=== PATIENT | female | born 1970 | race Caucasian/White ===

== ENCOUNTER 2018-02-11 17:56 | Emergency (ER) | payer OTHER ==
[2018-02-11 18:04] VITALS: BP 158/95; PULSE 63; TEMP 98.3; BMI 20.9
[2018-02-11 18:26] LABS: HCG,QUALITATIVE URINE Negative
[2018-02-11 18:30] LABS: PH,URINE 7.5 (4.5-8); URINE APPEARANCE Clear; URINE BILIRUBIN Negative (NEGATIVE); URINE COLOR Yellow; URINE GLUCOSE (UA) Negative (NEGATIVE); URINE KETONE Negative (NEGATIVE); URINE LEUK ESTERASE 2+ (NEGATIVE); URINE NITRITE Positive (NEGATIVE); URINE PROTEIN 2+ (NEGATIVE); URINE UROBILINOGEN 0.2 (0.2-1.0)
[2018-02-11] MEDS ORDERED: SODIUM CHLORIDE 1,000 ML IV STA (18:58)
[2018-02-11] MEDS ORDERED: ACETAMINOPHEN 1000 MG/100 ML VIAL (NON FORMULARY) IVPB ONE (18:58)
--- NOTE | 2018-02-11 19:24 | PDOC ---
History of Present Illness - General Chief Complaint: Pain, Acute Stated Complaint: RIGHT FLANK PAIN Time Seen by Provider: 02/11/18 18:00 - History of Present Illness Initial Comments: 02/11/18 19:34 The patient is a 47 year old female, with a past medical history of interstitial cystitis, who presents to the emergency department with sudden onset right flank pain that started today. She describes this pain as a sharp pain ranging between 7-10/10. She took 400mg of Advil, without relief. Patient endorses 2 months of UTI symptoms for which she has been treated 4 times using various antibiotics. She endorses suprapubic pain and burning with urination. She states that her symptoms never completely cleared up even on the abx. Pt is followed by Dr. Gaston and is scheduled for a cystoscopy tomorrow. Pt has never had pain like this before. Never been diagnosed with kidney stone. She denies recent fevers, chills, headache or dizziness. She denies recent nausea, vomit, diarrhea or constipation. She denies recent chest pain or shortness of breath. Allergies: Nitrofurantoin. Past surgical history: None reported. Primary Care Physician: Dr. Ramírez Past History - Past Medical History Allergies/Adverse Reactions: Allergies Allergy/AdvReac Type Severity Reaction Status Date / Time nitrofurantoin Allergy Verified 02/11/18 17:57 [From Macrodantin] Home Medications: Ambulatory Orders Aripiprazole [Abilify] 5 mg PO DAILY 02/11/18 Escitalopram Oxalate [Lexapro -] 10 mg PO DAILY 02/11/18 Lamotrigine [Lamictal] 200 mg PO DAILY 02/11/18 Meth/Meblue/Sod Phos/Psal/Hyos [Uro-Mp Capsule] 1 each PO DAILY 02/11/18 hydrOXYzine HCL [Atarax -] 0 mg PO ASDIR 02/11/18 COPD: No Psychiatric Problems: Yes (ANXITEY) - Suicide/Smoking/Psychosocial Hx Smoking History: Never smoked Hx Alcohol Use: No Drug/Substance Use Hx: No Substance Use Type: Alcohol Review of Systems - Review of Systems Comments:: 02/11/18 19:38 GENERAL/CONSTITUTIONAL: No fever or chills. No weakness. HEAD, EYES, EARS, NOSE AND THROAT: No change in vision. No ear pain or discharge. No sore throat. CARDIOVASCULAR: No chest pain or shortness of breath. RESPIRATORY: No cough, wheezing, or hemoptysis. GASTROINTESTINAL: No nausea, vomiting, diarrhea or constipation. GENITOURINARY: + R flank pain, dysuria MUSCULOSKELETAL: No joint or muscle swelling or pain. No neck or back pain. SKIN: No rash NEUROLOGIC: No headache, vertigo, loss of consciousness, or change in strength/ sensation. ENDOCRINE: No increased thirst. No abnormal weight change. HEMATOLOGIC/LYMPHATIC: No anemia, easy bleeding, or history of blood clots. ALLERGIC/IMMUNOLOGIC: No hives or skin allergy. *Physical Exam - Vital Signs Last Vital Signs Temp Pulse Resp BP Pulse Ox 98.3 F 63 18 158/95 100 02/11/18 17:57 02/11/18 17:57 02/11/18 17:57 18 17:57 02/11/18 17:57 - Physical Exam Comments: 02/11/18 19:38 """GENERAL: Awake, alert, and fully oriented, in no acute distress. HEAD: No signs of trauma EYES: PERRLA, EOMI, sclera anicteric, conjunctiva clear ENT: Auricles normal inspection, hearing grossly normal, nares patent, oropharynx clear without exudates. Moist mucosa NECK: Nontender, no stepoffs, Normal ROM, supple, no lymphadenopathy, JVD, or masses LUNGS: Breath sounds equal, clear to auscultation bilaterally. No wheezes, and no crackles HEART: Regular rate and rhythm, normal S1 and S2, no murmurs, rubs or gallops ABDOMEN: Soft, nontender, normoactive bowel sounds. No guarding, no rebound. No masses BACK: + R CVAT EXTREMITIES: Normal range of motion, no edema. No clubbing or cyanosis. No cords, erythema, or tenderness NEUROLOGICAL: Cranial nerves II through XII intact. 5/5 strength and sensation in all extremities, Normal speech, normal gait, normal cerebellar function SKIN: Warm, Dry, normal turgor, no rashes or lesions noted.""" ED Treatment Course - LABORATORY CBC & Chemistry Diagram: 02/11/18 19:30 02/11/18 19:30 - ADDITIONAL ORDERS Additional order review: Laboratory Results 02/11/18 18:11 Urine Color Yellow Urine Appearance Clear Urine pH 7.5 Ur Specific [place] 1.015 Urine Protein 2+ H Urine Glucose (UA) Negative Urine Ketones Negative Urine Blood 2+ H Urine Nitrite Positive Urine Bilirubin Negative Urine Urobilinogen 0.2 Ur Leukocyte Esterase 2+ H Urine HCG, Qual Negative - RADIOLOGY Radiology Studies Ordered: Category Date Time Status ABDOMEN & PELVIS CT W/O CONTR [CT] Stat CT Scan 02/11/18 18:58 Ordered Medical Decision Making - Medical Decision Making 02/11/18 19:38 47 F with dysuria and R flank pain. Suspect pyelo from persistent UTI that has been inadequately treated. However, given sudden onset of pain, will need to r/ o kidney stone as well. - Labs, UA, UPT - CTAP - IVF, pain control Pt signed out to oncoming attending at 7PM, pending labs, CT, and re-evaluation. *DC/Admit/Observation/Transfer Diagnosis at time of Disposition: Cystitis - Discharge Dispostion Disposition: HOME Condition at time of disposition: Stable - Referrals Referrals: Kristin Ramírez MD [Primary Care Provider] - - Patient Instructions Additional Instructions: Keep her appointment with your urologist for the morning, take copies of your CAT scan and blood work with you to your appointment Return to the emergency department immediately with ANY new, persistent or worsening symptoms. Continue any medications as previously prescribed by your physician. You should follow up with your primary doctor as soon as possible regarding today's emergency department visit. . Please make sure your doctor reviews the results of your emergency evaluation. Thank you for coming to the Emergency Department today for your care. It was a pleasure to see you today. Please note that your evaluation is INCOMPLETE until you follow-up with your doctor. - Post Discharge Activity - Attestations Physician Attestion: 02/13/18 10:05 I, Dr. Kraig Li MD, attest that this document has been prepared under my direction and personally reviewed by me in its entirety. I further attest, that it accurately reflects all work, treatment, procedures and medical decision -making performed by me.
[2018-02-11] MEDS ORDERED: ACETAMINOPHEN INJECTION 100 ML IVPB ONE (19:26)
[2018-02-11 20:01] LABS: BASO % 0.6 % (0-2.0); EOS % 1.1 % (0-4.5); HEMATOCRIT 36.3 % (32.4-45.2); HEMOGLOBIN 12.2 GM/dl (10.7-15.3); LYMPH % 23.2 % (8-40); MCH 29.2 pg (25.7-33.7); MCHC 33.6 g/dl (32.0-36.0); MEAN CELL VOLUME 86.9 fl (80-96); MEAN PLT VOLUME 8.4 fl (7.5-11.1); MONO % 6.8 % (3.8-10.2); NEUT % 68.3 % (42.8-82.8); PLATELET COUNT 308 K/MM3 (134-434); RBC 4.18 M/mm3 (3.60-5.2); RDW 12.3 % (11.6-15.6); WHITE BLOOD COUNT 8.5 K/mm3 (4.0-10.8)
[2018-02-11 20:13] LABS: ALBUMIN 4.4 g/dl (3.5-5.0); ALK PHOS 52 U/L (32-92); ANION GAP 9 MMOL/L (8-16); BILIRUBIN,TOTAL 0.7 mg/dl (0.2-1.0); BLOOD UREA NITROGEN 11 mg/dl (7-18); CHLORIDE 98 mmol/L (98-107); CO2 28 mmol/L (22-28); CREATININE 0.6 mg/dl (0.6-1.3); GLUCOSE,RANDOM 84 mg/dl (74-106); POTASSIUM 3.9 mmol/L (3.5-5.1); SGOT/AST 29 U/L (10-42); SGPT/ALT 25 U/L (10-40); SODIUM 135 mmol/L (136-145); TOT PROT 6.8 g/dl (6.4-8.3)
[2018-02-11] MEDS ORDERED: KETOROLAC TROMETHAMINE 30 MG/1 ML VIAL IVPUSH ONE (20:17)
[2018-02-11] MEDS ORDERED: ONDANSETRON 4 MG/2 ML VIAL IVPUSH ONE (20:17)
[2018-02-11] MEDS ORDERED: KETOROLAC TROMETHAMINE 30 MG/1 ML VIAL ONE (20:20)
[2018-02-11] MEDS ORDERED: ONDANSETRON 4 MG/2 ML VIAL ONE (20:20)
--- NOTE | 2018-02-11 20:24 | PDOC ---
*Physical Exam - Vital Signs Last Vital Signs Temp Pulse Resp BP Pulse Ox 98.3 F 63 18 158/95 100 02/11/18 17:57 02/11/18 17:57 02/11/18 17:57 02/11/18 17:57 02/11/18 17:57 ED Treatment Course - LABORATORY CBC & Chemistry Diagram: 02/11/18 19:30 02/11/18 19:30 - ADDITIONAL ORDERS Additional order review: Laboratory Results 02/11/18 02/11/18 19:30 18:11 Sodium 135 L Potassium 3.9 Chloride 98 Carbon Dioxide 28 Anion Gap 9 BUN 11 Creatinine 0.6 Creat Clearance w eGFR > 60 Random Glucose 84 Calcium 9.0 Total Bilirubin 0.7 AST 29 ALT 25 Alkaline Phosphatase 52 Total Protein 6.8 Albumin 4.4 Urine Color Yellow Urine Appearance Clear Urine pH 7.5 Ur Specific [place] 1.015 Urine Protein 2+ H Urine Glucose (UA) Negative Urine Ketones Negative Urine Blood 2+ H Urine Nitrite Positive Urine Bilirubin Negative Urine Urobilinogen 0.2 Ur Leukocyte Esterase 2+ H Urine HCG, Qual Negative 02/11/18 19:30 RBC 4.18 MCV 86.9 MCHC 33.6 RDW 12.3 MPV 8.4 Neutrophils % 68.3 Lymphocytes % 23.2 Monocytes % 6.8 Eosinophils % 1.1 Basophils % 0.6 - Medications Given in the ED: ED Medications Discontinued Medications Generic Name Dose Route Start Last Admin Trade Name Freq PRN Reason Stop Dose Admin Acetaminophen 1,000 mg 02/11/18 18:58 02/11/18 19:30 Ofirmev Injection - IVPB 02/11/18 18:59 1,000 mg ONCE ONE Administration Sodium Chloride 1,000 mls @ 1,000 mls/hr 02/11/18 18:58 02/11/18 19:46 Normal Saline - IV 02/11/18 19:57 1,000 mls/hr ASDIR STA Administration Progress Note - Progress Note Progress Note: Care of this patient was transferred to [facility] from Dr. Velasquez at 1900 hrs. Patient is a 47-year-old female with history of frequent urinary tract infections for which she is being followed by a urologist. Patient comes in complaining of some flank pain and urinary symptoms. Patient's urine was positive for urinary tract infection Patient has a workup pending including CBC, comp and a CAT scan of her abdomen and pelvis to rule out a stone Patient medicated with Toradol and Zofran for nausea. 22:30 Patient's CAT scan shows no acute pathology. Patient given copies of her CAT scan. Patient given copies of her blood work. Patient given a gram of ceftriaxone for her urinary tract infection however I did not continue any antibiotics as she has no appointment with her urologist for the morning and she is scheduled for a cystoscopy and a uroscopy patient will discuss with her urologist if she needs to continue any antibiotics at which antibiotics. Patient discharged home *DC/Admit/Observation/Transfer Diagnosis at time of Disposition: Cystitis - Discharge Dispostion Disposition: HOME Condition at time of disposition: Stable - Referrals Referrals: Kristin Ramírez MD [Primary Care Provider] - - Patient Instructions Additional Instructions: Keep her appointment with your urologist for the morning, take copies of your CAT scan and blood work with you to your appointment Return to the emergency department immediately with ANY new, persistent or worsening symptoms. Continue any medications as previously prescribed by your physician. You should follow up with your primary doctor as soon as possible regarding today's emergency department visit. . Please make sure your doctor reviews the results of your emergency evaluation. Thank you for coming to the Emergency Department today for your care. It was a pleasure to see you today. Please note that your evaluation is INCOMPLETE until you follow-up with your doctor. - Post Discharge Activity
[2018-02-11 20:32] LABS: URINE BACTERIA 4+ /hpf (NEGATIVE); URINE RBC 40-60 /hpf (0-3); URINE WBC >100 (0-5)
[2018-02-11] MEDS ORDERED: CEFTRIAXONE 1,000 MG in DEXTROSE 5%-WATER - 50 ML IVPB ONE (20:53)
[2018-02-11] MEDS ORDERED: cefTRIAXone SODIUM 1 GM VIAL ONE (21:17)
== END 2018-02-11 22:28 | disposition home or self-care (01) ==
LOC: FER 17:56
PROC: 3E03329 Introduction of Other Anti-infective into Peripheral Vein, Percutaneous Approach (ICD-10-PCS; principal; 2018-02-11)
PROC: 3E0333Z Introduction of Anti-inflammatory into Peripheral Vein, Percutaneous Approach (ICD-10-PCS; 2018-02-11)
PROC: 3E033GC Introduction of Other Therapeutic Substance into Peripheral Vein, Percutaneous Approach (ICD-10-PCS; 2018-02-11)
PROC: 3E0337Z Introduction of Electrolytic and Water Balance Substance into Peripheral Vein, Percutaneous Approach (ICD-10-PCS; 2018-02-11)
DX: N30.90 Cystitis, unspecified without hematuria (principal)
CPT/HCPCS: 36415; 74176-TC; 80053; 81003; 81015; 84703; 85025; 87086; 87186; 99282-25; J0131; J7030

== ENCOUNTER 2019-01-01 16:46 | Emergency (ER) | payer OTHER ==
[2019-01-01] MEDS ORDERED: SODIUM CHLORIDE 0.9% 500 ML INFUS.BAG IV ONE (17:02)
[2019-01-01] MEDS ORDERED: ONDANSETRON 4 MG/2 ML VIAL IVPUSH ONE (17:02)
--- NOTE | 2019-01-01 17:02 | PDOC ---
History of Present Illness - General Chief Complaint: Alcohol intoxication Stated Complaint: INTOX Time Seen by Provider: 01/01/19 16:50 Past History - Past Medical History Allergies/Adverse Reactions: Allergies Allergy/AdvReac Type Severity Reaction Status Date / Time nitrofurantoin Allergy Verified 02/11/18 17:57 [From Macrodantin] Home Medications: Ambulatory Orders Aripiprazole [Abilify] 5 mg PO DAILY 02/11/18 Escitalopram Oxalate [Lexapro -] 10 mg PO DAILY 02/11/18 Lamotrigine [Lamictal] 200 mg PO DAILY 02/11/18 Meth/Meblue/Sod Phos/Psal/Hyos [Uro-Mp Capsule] 1 each PO DAILY 02/11/18 hydrOXYzine HCL [Atarax -] 0 mg PO ASDIR 02/11/18 Cefuroxime Axetil [Ceftin -] 500 mg PO Q12H #14 tablet 02/14/18 COPD: No Psychiatric Problems: Yes (ANXITEY) - Suicide/Smoking/Psychosocial Hx Smoking History: Never smoked Hx Alcohol Use: No Drug/Substance Use Hx: No Substance Use Type: Alcohol
[2019-01-01 17:44] VITALS: BP 110/78; PULSE 99; TEMP 97.6; BMI 23.0
[2019-01-01] MEDS ORDERED: guaiFENesin 200 MG/10 ML 10 ML UNIT-DOSE CUPS PO ONE (18:12)
--- NOTE | 2019-01-01 18:18 | PDOC ---
Documentation entered by Paulette Estes SCRIBE, acting as scribe for Lisa Clarke MD. Lisa Clarke MD: This documentation has been prepared by the mindyibFranklyn roche Lincy, SCRIBE, under my direction and personally reviewed by me in its entirety. I confirm that the documentation accurately reflects all work, treatment, procedures, and medical decision making performed by me. History of Present Illness - General History Source: Patient, Spouse Exam Limitations: No Limitations - History of Present Illness Initial Comments: 01/01/19 18:13 The patient is a 48-year-old female with a past medical history significant for depression presents to the emergency department via ambulance accompanied by for alcohol intoxication s/p a fall. Per at the bedside, they were at an event earlier today, where she had some white wine and not much to eat. The states when they got home, she tried to ambulate out of the car , when she suffered a witnessed fall, no LOC. The patient sustained some abrasion to her shoulder, knees, and her head. The also states the patient has also been a lower respiratory infection for the past week. <Lisa Clarke - Last Filed: 01/01/19 18:18> <Pantera Wong I - Last Filed: 01/01/19 19:10> - General Chief Complaint: Alcohol intoxication Stated Complaint: INTOX Time Seen by Provider: 01/01/19 16:50 Past History - Past Medical History COPD: No Psychiatric Problems: Yes (ANXITEY) - Suicide/Smoking/Psychosocial Hx Smoking History: Never smoked Hx Alcohol Use: No Drug/Substance Use Hx: No Substance Use Type: Alcohol <Lisa Clarke - Last Filed: 01/01/19 18:18> <Pantera Wong I - Last Filed: 01/01/19 19:10> - Past Medical History Allergies/Adverse Reactions: Allergies Allergy/AdvReac Type Severity Reaction Status Date / Time nitrofurantoin Allergy Verified 01/01/19 17:16 [From Macrodantin] Home Medications: Ambulatory Orders Aripiprazole [Abilify] 5 mg PO DAILY 02/11/18 Escitalopram Oxalate [Lexapro -] 10 mg PO DAILY 02/11/18 Lamotrigine [Lamictal] 200 mg PO DAILY 02/11/18 Meth/Meblue/Sod Phos/Psal/Hyos [Uro-Mp Capsule] 1 each PO DAILY 02/11/18 hydrOXYzine HCL [Atarax -] 0 mg PO ASDIR 02/11/18 Cefuroxime Axetil [Ceftin -] 500 mg PO Q12H #14 tablet 02/14/18 Review of Systems - Review of Systems Able to Perform ROS?: Yes Comments:: 01/01/19 18:03 GENERAL/CONSTITUTIONAL: No fever or chills. No weakness. HEAD, EYES, EARS, NOSE AND THROAT: +small cut to her scalp. No change in vision. No ear pain or discharge. No sore throat. CARDIOVASCULAR: No chest pain or shortness of breath. RESPIRATORY: No cough, wheezing, or hemoptysis. GASTROINTESTINAL: No nausea, vomiting, diarrhea or constipation. GENITOURINARY: No dysuria, frequency, or change in urination. MUSCULOSKELETAL: No joint or muscle swelling or pain. No neck or back pain. SKIN: +abrasion to the knees and shoulder. No rash NEUROLOGIC: No headache, vertigo, loss of consciousness, or change in strength/ sensation. ENDOCRINE: No increased thirst. No abnormal weight change. HEMATOLOGIC/LYMPHATIC: No anemia, easy bleeding, or history of blood clots. ALLERGIC/IMMUNOLOGIC: No hives or skin allergy. <Lisa Clarke - Last Filed: 01/01/19 18:18> *Physical Exam - Vital Signs Last Vital Signs Temp Pulse Resp BP Pulse Ox 97.6 F 99 H 20 110/78 99 01/01/19 16:47 01/01/19 16:47 01/01/19 16:47 01/01/19 16:47 01/01/19 16:47 - Physical Exam Comments: 01/01/19 18:00 GENERAL: Awake, mild intoxicated and fully oriented, in no acute distress HEAD: normocephalic, +small abrasion to the scalp, no open wound or active bleeding. EYES: PERRLA, EOMI, sclera anicteric, conjunctiva clear ENT: Auricles normal inspection, hearing grossly normal, nares patent, oropharynx clear without exudates. Moist mucosa NECK: Supple, no spinous processes tenderness. LUNGS: Breath sounds equal, clear to auscultation bilaterally. HEART: Regular rate and rhythm. ABDOMEN: Soft, nontender, nondistended. BACK: no spinal tenderness. EXTREMITIES: +small abrasion on her right shoulder, abrasion to both knees, abrasion to her right ankle. Rest of the exam: full range of motion, no deformities. NEUROLOGICAL: Alert and oriented x3, moving all extremities, cranial nerves grossly intact, mildly intoxicated. <Lisa Clarke - Last Filed: 01/01/19 18:18> - Vital Signs Last Vital Signs Temp Pulse Resp BP Pulse Ox 97.6 F 99 H 20 110/78 99 01/01/19 16:47 01/01/19 16:47 01/01/19 16:47 01/01/19 16:47 01/01/19 16:47 <Pantera Wong I - Last Filed: 01/01/19 19:10> ED Treatment Course - Medications Given in the ED: ED Medications Discontinued Medications Generic Name Dose Route Start Last Admin Trade Name Freq PRN Reason Stop Dose Admin Ondansetron HCl 4 mg 01/01/19 17:02 01/01/19 17:16 Zofran Injection IVPUSH 01/01/19 17:03 4 mg ONCE ONE Administration Sodium Chloride 1,000 ml 01/01/19 17:02 01/01/19 17:15 Normal Saline - IV 01/01/19 17:03 1,000 ml ONCE ONE Administration <Lisa Clarke - Last Filed: 01/01/19 18:18> - Medications Given in the ED: ED Medications Discontinued Medications Generic Name Dose Route Start Last Admin Trade Name Freq PRN Reason Stop Dose Admin Ondansetron HCl 4 mg 01/01/19 17:02 01/01/19 17:16 Zofran Injection IVPUSH 01/01/19 17:03 4 mg ONCE ONE Administration Sodium Chloride 1,000 ml 01/01/19 17:02 01/01/19 17:15 Normal Saline - IV 01/01/19 17:03 1,000 ml ONCE ONE Administration <Pantera Wong I - Last Filed: 01/01/19 19:10> Medical Decision Making - Medical Decision Making 01/01/19 18:14 Pt presents to the ED mildly intoxicated. Patient is oriented x 3 and has no complaints except for nausea and vomiting. will forgo CT head and C spine at this time, since patient is oriented and asymptomatic. No spinous process tenderness, full ROM. Will give IV hydration and nausea control and discharge home with when patient is ambulatory and tolerating PO. <Lisa Clarke - Last Filed: 01/01/19 18:18> *DC/Admit/Observation/Transfer <Lisa Clarke - Last Filed: 01/01/19 18:18> - Discharge Dispostion Decision to Admit order: No <Pantera Wong I - Last Filed: 01/01/19 19:10> Diagnosis at time of Disposition: Alcohol intoxication - Discharge Dispostion Disposition: HOME - Patient Instructions Additional Instructions: Drink alcohol in moderation. Return to the emergency department immediately with ANY new, persistent or worsening symptoms. Continue any medications as previously prescribed by your physician. You should follow up with your primary doctor as soon as possible regarding today's emergency department visit. . Please make sure your doctor reviews the results of your emergency evaluation. Thank you for coming to the Emergency Department today for your care. It was a pleasure to see you today. Please note that your evaluation is INCOMPLETE until you follow-up with your doctor.
[2019-01-01] MEDS ORDERED: guaiFENesin/D-METHORPHAN HB 10 ML UNIT-DOSE CUPS ONE (19:06)
== END 2019-01-01 19:29 | disposition home or self-care (01) ==
LOC: FER 16:46
PROC: 3E033GC Introduction of Other Therapeutic Substance into Peripheral Vein, Percutaneous Approach (ICD-10-PCS; principal; 2019-01-01)
PROC: 3E0337Z Introduction of Electrolytic and Water Balance Substance into Peripheral Vein, Percutaneous Approach (ICD-10-PCS; 2019-01-01)
DX: F10.920 Alcohol use, unspecified with intoxication, uncomplicated (principal); W18.39XA Other fall on same level, initial encounter; Y93.89 Activity, other specified; Y92.89 Other specified places as the place of occurrence of the external cause
CPT/HCPCS: 99283-25

== ENCOUNTER 2019-06-23 08:17 | Emergency (ER) | payer OTHER ==
--- NOTE | 2019-06-23 08:36 | PDOC ---
History of Present Illness - General Chief Complaint: Headache Stated Complaint: HEADACHE SINUS ISSUE Time Seen by Provider: 06/23/19 08:20 History Source: Patient Exam Limitations: No Limitations - History of Present Illness Initial Comments: 06/23/19 08:35 49y F hx of migraines presents with headache. Patient endorses having a mild cough and shortness of breath as well as a mild headache while traveling last week she took a 3-day course of Levaquin with resolution of her symptoms. Pt felt fine on thursday. Patient does endorse using a [place] pot during her course of travel although she notes she did use filtered water. However yesterday the patient notes that her headache seemed to get much worse it is located in the frontal sinus and maxillary region and has been persistent. On thu, she recalls waking up with a mnimal headache, but it got gradually worse throughout the day. Pt notse the headache was so bad last night, she could not even sleep. She went to urgent care yesterday and was given tramadol for her headache and referred to the ER if the headache did not get any better. The patient states that her cough and shortness of breath has largely improved she denies any recent fevers, body aches, nasal congestions, sore throat. Patient denies any neck pain, neck stiffness, vomiting, Vision changes, focal numbness, tingling, weakness less, ear pain, sore throat. Patient notes that the headache seems to get worse when she reclines Past History - Past Medical History Allergies/Adverse Reactions: Allergies Allergy/AdvReac Type Severity Reaction Status Date / Time nitrofurantoin Allergy Verified 06/23/19 08:20 [From Macrodantin] Home Medications: Ambulatory Orders Lamotrigine [Lamictal] 100 mg PO DAILY 02/11/18 Lisdexamfetamine Dimesylate [Vyvanse] 20 mg PO DAILY 06/23/19 Pantoprazole Sodium [Protonix -] 20 mg PO DAILY 06/23/19 COPD: No GI Disorders: Yes (GERD) Psychiatric Problems: Yes (ANXITEY) - Psycho Social/Smoking Cessation Hx Smoking History: Never smoked Have you smoked in the past 12 months: No Information on smoking cessation initiated: No Hx Alcohol Use: Yes (SOCIAL) Drug/Substance Use Hx: No Substance Use Type: Alcohol Review of Systems - Review of Systems Able to Perform ROS?: Yes Comments:: 06/23/19 09:14 Constitutional - no reported Fever, Chills, HEENT: no reported vision changes, sore throat Respiratory: no reported cough, sob, hemoptysis Cardiac: no reported chest pain, palpitations, light headedness, leg swelling Abd/GI: no reported abd pain, nausea, vomiting, blood per rectum, melena, diarrhea : no reported dysuria, frequency, discharge Musculskelatal - no reported back pain, joint swelling skin - no reported bruising, erythema, rash neurological: +headache, no reported numbness, focal weakness, tingling, ataxia , hematologic: no reported easy bruising, easy bleeding *Physical Exam - Vital Signs Last Vital Signs Temp Pulse Resp BP Pulse Ox 98.3 F 74 18 115/83 100 06/23/19 08:19 06/23/19 08:19 06/23/19 08:19 06/23/19 08:19 06/23/19 08:19 - Physical Exam 06/23/19 09:14 GENERAL: The patient is awake, alert, and fully oriented, Nontoxic - in no acute distress. HEAD: Normocephalic, atraumatic. EYES: extraocular movements intact, sclera anicteric, conjunctiva clear, Visual pool intact by confrontation, pupils equally reactive to light ENT: Normal voice, Moist mucous membranes. Moderate maxillary tenderness NECK: Normal range of motion, supple LUNGS: Breath sounds equal, clear to auscultation bilaterally. No wheezes, no rhonchi, no rales. HEART: Regular rate and rhythm, normal S1 and S2 without murmur, rub or gallop. ABDOMEN: Soft, nontender, No guarding, no rebound. No CVA tenderness EXTREMITIES: Normal range of motion, no edema. NEUROLOGICAL: No facial assymetry, Normal speech, Moving all 4 extremity spontaneously and symmetrically, Sensation intact and symmetric in upper and lower extremities PSYCH: Normal mood, normal affect. SKIN: Warm, Dry, normal turgor, ED Treatment Course - LABORATORY CBC & Chemistry Diagram: 06/23/19 09:23 06/23/19 09:23 Medical Decision Making - Medical Decision Making 06/23/19 09:15 gradual onset of headache, headche localized to frontal/maxillar sinuses, worse with leaning forward, laying back and with touch. no focal neuro symptoms. Differential for the patient's symptoms includes possible sinus headache or sinusitis although the patient Lacks any significant nasal congestion or URI symptoms at this time. Consider central venous thrombosis as well as as cause of her headache. Will obtain screening blood work we will give the patient Reglan, fluids, will obtain an initial head CT As patient does note this headache is more severe in nature than her private he has migraines. 06/23/19 10:[address] is negative no signs of Sinusitis. Patient still in severe amount of pain, will obtain CT venogram versus MR venogram to further evaluate for possible Central venous thrombosis. Patient has no history of DVTs, PEs, use of hormonal therapy, Does note that a nephew has a history of PEs. 06/23/19 13:39 Feeling moderately better is approximately 6 out of 10 pain, will give the patient Decadron as well as magnesium. 06/23/19 14:44 Patient is feeling much improved, will discharge patient with outpatient follow- up. If patient frequently has headaches we will have the patient follow-up with neurology. Patient repeat neuro exam is normal I discussed the physical exam findings, ancillary test results and final diagnoses with the patient. I answered all of the patient's questions. The patient was satisfied with the care received and felt comfortable with the discharge plan and treatment plan. The patient will call their primary care physician within 24 hours to arrange follow-up and will return to the Emergency Department with any new, persistent or worsening symptoms. Discharge - Discharge Information Problems reviewed: Yes Clinical Impression/Diagnosis: Headache Qualifiers: Headache type: tension-type Headache chronicity pattern: acute headache Intractability: not intractable Qualified Code(s): G44.209 - Tension-type headache, unspecified, not intractable Condition: Improved Disposition: HOME - Admission No - Follow up/Referral Referrals: Quirino Moscoso MD [Staff Physician] - - Patient Discharge Instructions Patient Printed Discharge Instructions: DI for Headache Additional Instructions: Return to the emergency department immediately with ANY new, persistent or worsening symptoms including worsening headache, vision changes, numbness/ tingling/weakness, persistent nausea and vomiting or any other concerns. Make sure you are getting adaqute sleep and hydration. You MUST call and follow up with your doctor in 3-4 days for further evaluation of your symptoms. Your emergency department visit is not complete without a followup with your doctor for reevaluation. Results were discussed with you. Please make sure your doctor reviews the results of your emergency evaluation. - Post Discharge Activity
[2019-06-23 09:07] VITALS: BMI 20.2
[2019-06-23] MEDS ORDERED: SODIUM CHLORIDE 0.9% 500 ML INFUS.BAG IV ONE (09:07)
[2019-06-23] MEDS ORDERED: METOCLOPRAMIDE HCL INJECTION 10 MG/2 ML VIAL IVPUSH ONE (09:07)
[2019-06-23] MEDS ORDERED: ACETAMINOPHEN 1000 MG/100 ML VIAL (NON FORMULARY) IVPB ONE (09:16)
[2019-06-23] MEDS ORDERED: METOCLOPRAMIDE HCL INJECTION 10 MG/2 ML VIAL ONE (09:17)
[2019-06-23] MEDS ORDERED: ACETAMINOPHEN INJECTION 100 ML IVPB ONE (09:30)
[2019-06-23 09:49] LABS: BASO % 0.9 % (0-2.0); EOS % 2.1 % (0-4.5); HEMATOCRIT 37.5 % (32.4-45.2); HEMOGLOBIN 11.8 GM/dl (10.7-15.3); LYMPH % 42.5 % (8-40); MCH 27.7 pg (25.7-33.7); MCHC 31.3 g/dl (32.0-36.0); MEAN CELL VOLUME 88.4 fl (80-96); MEAN PLT VOLUME 8.1 fl (7.5-11.1); MONO % 7.6 % (3.8-10.2); NEUT % 46.9 % (42.8-82.8); PLATELET COUNT 334 K/MM3 (134-434); RBC 4.24 M/mm3 (3.60-5.2); RDW 13.4 % (11.6-15.6); WHITE BLOOD COUNT 4.2 K/mm3 (4.0-10.8)
[2019-06-23 09:50] LABS: ALBUMIN 3.9 g/dl (3.4-5.0); BILIRUBIN,TOTAL 0.5 mg/dl (0.2-1); CREATININE 0.5 mg/dl (0.55-1.3); POTASSIUM 4.8 mmol/L (3.5-5.1); TOT PROT 6.7 g/dl (6.4-8.2)
[2019-06-23] MEDS ORDERED: KETOROLAC TROMETHAMINE 30 MG/1 ML VIAL IVPUSH ONE (10:29)
[2019-06-23] MEDS ORDERED: KETOROLAC TROMETHAMINE 30 MG/1 ML VIAL ONE (10:52)
[2019-06-23] MEDS ORDERED: ALPRAZolam 0.25 MG TABLET PO ONE (11:11)
[2019-06-23] MEDS ORDERED: ALPRAZolam 0.25 MG TABLET ONE (11:12)
[2019-06-23 11:48] VITALS: TEMP 98.2
[2019-06-23] MEDS ORDERED: morphine CARPU-JECT 2 MG/1 ML DISP.SYRIN IVPUSH ONE (12:55)
[2019-06-23] MEDS ORDERED: morphine SULFATE 4 MG/ML VIAL ONE (13:04)
[2019-06-23] MEDS ORDERED: DEXAMETHASONE SOD PHOSPHATE 10 MG/1 ML VIAL IVPUSH ONE (13:38)
[2019-06-23] MEDS ORDERED: MAGNESIUM 1GM/D5W - 1 GM/100 ML IVPB IVPB ONE (13:41)
[2019-06-23] MEDS ORDERED: DEXAMETHASONE SOD PHOSPHATE 10 MG/1 ML VIAL ONE (13:41)
[2019-06-23 14:25] VITALS: BP 117/78
[2019-06-23 14:43] VITALS: PULSE 53
== END 2019-06-23 14:55 | disposition home or self-care (01) ==
LOC: FER 08:17
PROC: 3E033GC Introduction of Other Therapeutic Substance into Peripheral Vein, Percutaneous Approach (ICD-10-PCS; principal; 2019-06-23)
PROC: 3E033NZ Introduction of Analgesics, Hypnotics, Sedatives into Peripheral Vein, Percutaneous Approach (ICD-10-PCS; 2019-06-23)
PROC: 3E0333Z Introduction of Anti-inflammatory into Peripheral Vein, Percutaneous Approach (ICD-10-PCS; 2019-06-23)
DX: G44.209 Tension-type headache, unspecified, not intractable (principal); Z88.8 Allergy status to other drugs, medicaments and biological substances; K21.9 Gastro-esophageal reflux disease without esophagitis; F41.9 Anxiety disorder, unspecified
CPT/HCPCS: 36415; 70450-TC; 70545-TC; 80053; 85025; 99285-25; A9579; C1887; J0131; J1100